=== PATIENT | female | born 1970 | race Caucasian/White ===

== ENCOUNTER 2017-12-18 11:52 | Emergency (ER) | payer MEDICAID | END 2017-12-18 12:28 | disposition home or self-care (01) | LOC: E/R 12:28 | DX: R05 Cough (principal); J45.909 Unspecified asthma, uncomplicated | CPT/HCPCS: 99284 ==

== ENCOUNTER 2019-02-13 15:12 | Emergency (ER) | payer MEDICAID ==
[2019-02-13] MEDS: DIPHTH/TET/ACEL PERTUSS (ADULT) 0.5 ML VIAL IM* (16:22)
[2019-02-13] MEDS: KETOROLAC 30 MG INJ IM (16:22)
[2019-02-13] MEDS: LIDOCAINE 1%/EPI 30 ML INJ INJ (16:35)
== END 2019-02-13 17:50 | disposition home or self-care (01) ==
LOC: FTE 15:12
DX: S01.01XA Laceration without foreign body of scalp, initial encounter (principal); J45.909 Unspecified asthma, uncomplicated; W01.0XXA Fall on same level from slipping, tripping and stumbling without subsequent striking against object, initial encounter; Y92.9 Unspecified place or not applicable; Z23 Encounter for immunization
CPT/HCPCS: 12002; 81025; 90471; 90715; 96372; 99284-25

== ENCOUNTER 2019-02-16 18:59 | Emergency (ER) | payer MEDICAID | END 2019-02-16 19:50 | disposition home or self-care (01) | LOC: FTE 18:59 | DX: Z48.01 Encounter for change or removal of surgical wound dressing (principal); J45.909 Unspecified asthma, uncomplicated | CPT/HCPCS: 99281; Z7502 ==

== ENCOUNTER 2019-02-21 13:39 | Emergency (ER) | payer MEDICAID | END 2019-02-21 14:48 | disposition left against medical advice (07) | LOC: FTE 13:39 | DX: Z48.02 Encounter for removal of sutures (principal); J45.909 Unspecified asthma, uncomplicated | CPT/HCPCS: 99281; Z7502 ==